=== PATIENT | male | born 1990 | race Caucasian/White ===

== ENCOUNTER 2020-08-13 14:17 | Outpatient (REF) | payer MEDICAID, SELFPAY | END 2020-08-13 14:18 | disposition home or self-care (01) | LOC: HO.LAB 14:17 | PROVIDERS: Visit Provider Internal Medicine | DX: Z20.828 Contact with and (suspected) exposure to other viral communicable diseases (principal) | CPT/HCPCS: C9803; U0003 ==

== ENCOUNTER 2020-08-29 06:39 | Outpatient (REF) | payer MEDICAID, SELFPAY | END 2020-08-29 06:40 | disposition home or self-care (01) | LOC: HO.LAB 06:39 | PROVIDERS: Visit Provider Internal Medicine | DX: Z20.828 Contact with and (suspected) exposure to other viral communicable diseases (principal) | CPT/HCPCS: C9803; U0003 ==

== ENCOUNTER 2020-11-04 16:10 | Emergency (ER) | payer OTHER, SELFPAY ==
--- NOTE | ~2020-11-04 | XR_ITS ---
EXAMINATION: XR SHOULDER, LEFT CLINICAL INFORMATION: Pain. COMPARISON: None TECHNIQUE: AP external rotation, Grashey, scapular Y, and axillary views of the left shoulder. FINDINGS: The bones and soft tissues are normal. No fracture. Glenohumeral and acromioclavicular alignment is anatomic with normal joint space. No abnormal soft tissue calcifications. XR/XR shoulder LT min 2V IMPRESSION: Unremarkable examination.
[2020-11-04 16:16] VITALS: BP 114/77; PULSE 77; RESP 18; TEMP 36.6; O2SAT 97; BMI 25.3
--- NOTE | 2020-11-04 17:21 | ED.EXTPRO ---
HPI - Extremity Problem General Chief complaint: Extremity Injury, Upper Stated complaint: shoulder inj work Time Seen by Provider: 11/04/20 17:15 Source: patient Mode of arrival: ambulatory Limitations: language barrier History of Present Illness HPI Narrative: 30-year-old male with no significant past medical history presents with left shoulder pain. 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 He does use a drill which he hold overhead. He is having a difficult time with shoulder flexion and extension and holding his arm out laterally. He does not report any chest pain, numbness, tingling, weakness, loss of sensation, bruising, or swelling. MD Complaint: extremity pain Onset (ago): day(s) (6) Pain Consistency: constant Location: left Severity scale (1-10): 9 Quality: burning, aching and constant Radiation: none Relieving factors: immobilization Exacerbating factors: range of motion, exertion and palpation Associated symptoms: denies other symptoms Related Data Previous Rx's Medication Instructions Recorded ibuprofen 600 mg PO TID PRN #30 tab 11/04/20 Allergies Allergy/AdvReac Type Severity Reaction Status Date / Time No Known Allergies Allergy Unverified 06/07/20 19:31 [No Known Allergies*] Review of Systems Review of Systems: Constitutional: No Fever, No Chills ENT/Mouth: No Ear Pain, No Hoarseness, No sore throat Eyes: No Eye Pain, No Swelling, No Redness, No Foreign Body Cardiovascular: No Chest Pain, No SOB Respiratory: No Cough, No Dyspnea Gastrointestinal: No Nausea, No Vomiting, No Diarrhea, No abdominal Pain Genitourinary: No Dysuria, No Hematuria Musculoskeletal: positive left shoulder pain, No Myalgias, No Joint Swelling Skin: No Skin lacerations, No rash Neuro: No Weakness, No Numbness, No Paresthesias, No Loss of Consciousness, No Dizziness, No Headache Psych: No Anxiety/Panic, No Depression Heme/Lymph: no easy bruising, no Lymphadenopathy Endocrine: No Polyuria, No Polydipsia Yes all other systems are reviewed and are negative [facility] Past Medical History Attestation statement: The following information was validated with the patient. Source: old records reviewed Social History Social History Alcohol intake: never Smoked in Last 30 Days: No Use of substances other than those prescribed or required for medical reasons: No Any prior treatment program specific to substance use: No Advance Directives: No Advance Directives Information Provided: Yes Physical Exam Vital Signs: Vital Signs: Last Vital Signs Temp 97.8 F 11/04/20 16:16 Pulse 77 11/04/20 16:16 Resp 18 11/04/20 16:16 BP 114/77 11/04/20 16:16 Pulse Ox 97 11/04/20 16:16 Body Mass Index 25.3 Appearance: Alert. Oriented X3. No acute distress. Eyes: Pupils equal, round and reactive to light. ENT: Pharynx normal. Neck: Normal inspection. Neck supple. CVS: Normal heart rate and rhythm. Pulses normal. Respiratory: No respiratory distress. Breath sounds normal. Abdomen: Soft and nontender. Skin: Skin warm and dry. Normal skin color. Normal skin turgor. Extremities: Full range of motion to all extremities, increased pain at the 80-100 degree lateral abduction of the left arm, tenderness to palpation to the left acromion process at rest. Strength 5/5 to all extremities. Neuro: No motor deficit. No sensory deficit. Cranial nerves 2-12 intact. No focal neural deficits. Course Course Course Narrative: 30-year-old male with no significant past medical history presents with left shoulder pain. Will order x-rays. Based on patient's physical exam, he has increased pain on range of motion on lateral abduction between 80 and 100?, pain worse with flexion and extension. Able to pronate and supinate, no elbow or wrist pain. Full range of motion to all digits. X-ray negative for acute fracture or dislocation. Highly suspicious for a rotator cuff injury. Stroud text message to Leon DACOSTA, office will reach out to patient. Patient verbalized understanding of and agrees to plan of care discharge home. sales team leader utilized for all correspondence. Google translate utilized for discharge instructions. MDM - Extremity (Nontraumatic) MDM Narrative Medical decision making narrative: Rotator cuff, ligament, labrum, muscular strain, fracture Medical Records Attestation: I reviewed the patient's medical records. Imaging Data Left shoulder x-ray: Attestation: I personally reviewed and interpreted this imaging study as follows: Radiologist's impression: EXAMINATION: XR SHOULDER, LEFT CLINICAL INFORMATION: Pain. COMPARISON: None TECHNIQUE: AP external rotation, Grashey, scapular Y, and axillary views of the left shoulder. FINDINGS: The bones and soft tissues are normal. No fracture. Glenohumeral and acromioclavicular alignment is anatomic with normal joint space. No abnormal soft tissue calcifications. XR/XR shoulder LT min 2V IMPRESSION: Unremarkable examination. Discharge Plan Discharge Clinical Impression: Rotator cuff injury Qualifiers: Encounter type: initial encounter Laterality: left Qualified Code(s): S46.002A - Unspecified injury of muscle(s) and tendon(s) of the rotator cuff of left shoulder, initial encounter Patient Disposition: Home, Self-Care Instructions: Rotator Cuff Injury (ED), Rotator Cuff Tendinitis (ED), Rotator Cuff Injury Exercises (DC) Additional Instructions: Te evaluaron para el dolor en el hombro ashley. Por favor, gladys un seguimiento con ortopedia. Te llamar?n con sally carlos alberto. Use Tylenol y Motrin seg?n sea necesario para el control del dolor. Use hielo para ayudar a disminuir la hinchaz?n. Usa el cabestrillo para mayor comodidad. Lauryn por elegir abdoul departamento de emergencias para la evaluaci?n. Por favor, gladys un seguimiento con el m?dico de atenci?n primaria seg?n sea necesario. Regrese al servicio de urgencias para cualquier s?ntoma nuevo, preocupante o que empeore. You were evaluated for left shoulder pain. Please follow-up with orthopedics. They will call you with an appointment. Use Tylenol and Motrin as needed for pain management. Use ice to help decrease swelling. Use the sling for comfort. Thank you for choosing this emergency department for evaluation. Please follow-up with primary care physician as needed. Return to the emergency department for any new, concerning, or worsening symptoms. Prescriptions: New ibuprofen 600 mg tablet 600 mg PO TID PRN (Reason: pain) Qty: 30 RF: 0 Referrals: Leon Johnson PA-C [Physician Tag Clerk] - 2 days (Left rotator cuff injury) Stand Alone Forms: Work/School Release Interventions: ED Discharge Assessment Last Done: 11/04/20 18:09 Discharge Date/Time: 11/04/20 18:15
== END 2020-11-04 18:15 | disposition home or self-care (01) ==
PROVIDERS: Emergency Provider Emergency Medicine; PCP Nurse Practitioner Family
DX: S46.002A Unspecified injury of muscle(s) and tendon(s) of the rotator cuff of left shoulder, initial encounter (principal); M25.512 Pain in left shoulder; X50.3XXA Overexertion from repetitive movements, initial encounter; X50.0XXA Overexertion from strenuous movement or load, initial encounter; Y93.9 Activity, unspecified; Y92.9 Unspecified place or not applicable; Y99.0 Civilian activity done for income or pay; Z79.899 Other long term (current) drug therapy
CPT/HCPCS: 73030; 99283; 99284

== ENCOUNTER → 2020-11-13 12:11 | Outpatient (BNVA) | payer OTHER, SELFPAY | PROVIDERS: Visit Provider Physician Assistant | DX: Z13.89 Encounter for screening for other disorder (principal) | CPT/HCPCS: 99202 ==

== ENCOUNTER 2020-11-22 12:11 | Outpatient (REF) | payer BC, OTHER, SELFPAY ==
[2020-11-22 13:18] LABS: Basophils Percent Auto 0.5 % (0-2); Eosinophils Absolute Auto 0.1 X10*3/uL (0.0-0.4); Eosinophils Percent Auto 1.9 % (0-4); Hematocrit 41.7 % (42-52); Imm Gran Abs Auto 0.01 X10*3/uL (0.00-0.03); Imm Gran Pct Auto 0.2 % (0.0-0.4); Lymphocytes Absolute Auto 2.6 X10*3/uL (1.2-4.9); MANUAL DIFF FLAG NO; Mean Corpuscular HGB Conc 33.6 g/dl (31.0-36.0); Mean Corpuscular Hemoglobin 29.7 pg (27.0-33.0); Mean Corpuscular Volume 88.3 fL (80-98); Mean Platelet Volume 9.1 fL (9.4-12.4); Monocytes Absolute Auto 0.3 X10*3/uL (0.1-1.2); Monocytes Percent Auto 5.5 % (2-11); Neutrophils Absolute Auto 2.8 X10*3/uL (2.0-8.3); Neutrophils Percent Auto 46.9 % (45-73); Platelet Count 297 X10*3/uL (160-400); Red Blood Count 4.72 X10*6/uL (4.60-5.80); Red Cell Distribution Width 13.3 % (11.0-16.0); White Blood Count 5.9 X10*3/uL (4.8-10.8)
[2020-11-22 13:47] LABS: Alanine Aminotransferase 12 U/L (0-40); Albumin Level 4.7 g/dL (3.5-5.0); Alkaline Phosphatase 62 U/L (39-117); Anion Gap 13 (12-20); Aspartate Amino Transferase 16 U/L (5-37); Blood Urea Nitrogen 13 mg/dL (9-16); C Reactive Protein 0.06 mg/dL (< or = 0.50); Calcium 9.6 mg/dL (8.4-10.2); Carbon Dioxide 29 mmol/L (22-29); Chloride 104 mmol/L (96-108); Cholesterol 158 mg/dL; Estimated Glomerular Filt Rate > 60; Glucose Fasting 97 mg/dL (60-99); HDL Cholesterol 36 mg/dL; LDL Cholesterol Calculated 100 mg/dl; Potassium 4.6 mmol/L (3.3-5.1); Sodium 141 mmol/L (135-145); Total Protein 7.7 g/dL (6.5-8.0); Triglycerides 110 mg/dL
[2020-11-22 13:52] LABS: Glucose Urine UA NEG (NEG); Leukocyte Esterase Urine NEG (NEG); Nitrite Urine NEG (NEG); PH 5.5 (5.0-8.0); Specific Gravity - Urine >= 1.030 (1.005-1.025); Urine Blood NEG (NEG); Urine Ketones NEG (NEG); Urine Protein NEG (NEG-TRACE)
[2020-11-22 13:55] LABS: Appearance Urine CLEAR; Color Urine YELLOW
[2020-11-22 14:10] LABS: TSH reflex Free T4 1.65 uIU/mL (0.32-4.0)
[2020-11-22 14:19] LABS: Erythrocyte Sedimentation Rate 7 MM/HR (0-15)
[2020-11-23 06:22] LABS: Lyme Abs Screen <0.90 index
[2020-11-23 22:41] LABS: ANA Titer 2 1:40 titer; Anti Nuclear Antibody Screen POSITIVE (NEGATIVE); Anti Nuclear Antibody Titer 1:40 titer
== END 2020-11-22 12:12 | disposition home or self-care (01) ==
LOC: HO.LAB 12:11
PROVIDERS: PCP Internal Medicine; Visit Provider Internal Medicine
DX: Z00.00 Encounter for general adult medical examination without abnormal findings (principal); M25.50 Pain in unspecified joint
CPT/HCPCS: 36415; 80053; 80061; 81003; 84443; 85025; 85652; 86038; 86039; 86140; 86618

== ENCOUNTER → 2020-11-30 08:55 | Outpatient (BNVA) | payer BC, OTHER, SELFPAY | PROVIDERS: PCP Internal Medicine; Visit Provider Physician Assistant | DX: M75.82 Other shoulder lesions, left shoulder (principal) | CPT/HCPCS: 20610; J1040 ==

== ENCOUNTER 2020-12-12 11:00 | Outpatient (RCR) | payer BC, OTHER, SELFPAY ==
--- NOTE | 2020-11-22 14:11 | MHC.PT.EP ---
[facility] [place] Office [place] Office [place] Office [address] Bertin Burkett [address] [phone] F: [phone] F: [phone] F: [phone] F: [phone] Physical Therapy Plan of Care Date of Evaluation: 11/22/20 Date of Surgery: N/A Diagnosis: Tendonitis of Left Rotator Cuff Assessment: Swetha is a 26-year-old male presenting to physical therapy with left shoulder pain and a diagnosis of rotator cuff tendonitis. He presents with deficits in L shoulder ROM, L shoulder strength,8-9/10 pain with movements, TTP over L AC joint and impaired posture. His pain is primarily located at his left AC joint and results of testing are indicative of an AC joint sprain. Swetha would benefit from skilled therapy to address the aforementioned impairments and allow him to perform ADLS, work on his car and bicycle, and return to work without pain and limitations in ROM and strength. Swetha is motivated to participate in therapy in order to return to his PLOF. Frequency and Duration: The patient will be seen 2 visits per week for 6 weeks Short Term Goals: 1.) Pt will report <2/10 pain at rest to allow him to sleep through the night within 3 weeks. 2.) Pt will demonstrate L shoulder flexion ROM WNL in order for him to be able to reach overhead when cleaning the house within 3 weeks. Orthopedic Rn Goals: 1.) Pt will be able to work on his car for one hour without experiencing shoulder pain within 6 weeks. 2.) Pt will demonstrate 5-/5 BL shoulder MMT with all movements in order to facilitate return to work within 6 weeks. Treatment Plan: Modalities to reduce pain, spasms and effusion. Manual therapy to restore motion and function. Therapeutic exercise to improve strength and flexibility. Neuromuscular re-education for posture and balance. Therapeutic activities to return to functional activities of daily living. Electronically signed by: Mindy Connor, PT, DPT Please sign and return to therapist. Thank you for your referral.
--- NOTE | 2021-01-02 11:30 | MHC.PT.DC ---
[facility] [place] Office [place] [facility] [place] Office [address] Bertin Burkett [address] [phone] F: [phone] F: [phone] F: [phone] F: [phone] Physical Therapy Discharge Report Diagnosis: Tendonitis of Left Rotator Cuff Date of Surgery: N/A Date of Evaluation: 11/22/20 Date of Discharge: 01/02/21 Treatments to Date: 7 Cancellations to Date: 0 No Shows to Date: 0 Discharge Status: Achieved Goals Improved Function Discharge Summary: Swetha completed 7 visits of PT and returned to PLOF. He has also returned to regular duty work. He has improved and is independent with HEPS. He has achieved all goals set for him. He is therefore being d/c from therapy. Electronically signed by: Mindy Connor, PT, DPT Please sign and return to therapist. Thank you for your referral.
== END 2021-01-02 11:30 | disposition other institution (70) ==
LOC: HO.PT 11:00
PROVIDERS: Visit Provider Physician Assistant
DX: M75.82 Other shoulder lesions, left shoulder (principal)
CPT/HCPCS: 97110; 97112; 97140; 97161

== ENCOUNTER → 2020-12-14 08:59 | Outpatient (BNVA) | payer BC, OTHER, SELFPAY | PROVIDERS: PCP Internal Medicine; Visit Provider Physician Assistant ==

== ENCOUNTER 2021-07-02 06:50 | Emergency (ER) | payer BC, SELFPAY ==
[2021-07-02 07:14] VITALS: BP 118/60; PULSE 95; RESP 18; TEMP 37.2; O2SAT 97; BMI 24.7
--- NOTE | 2021-07-02 07:23 | ED_ITS ---
HPI - URI/Sore Throat General Chief Complaint: Upper Respiratory Symptoms Stated Complaint: Covid symptoms Time Seen by Provider: 07/02/21 07:18 Source: patient Mode of arrival: ambulatory Limitations: no limitations History of Present Illness MD elicited complaint: fever, cough and sore throat Onset (ago): day(s) (3) Consistency: constant Severity: moderate Description of mucous: clear Able to tolerate fluids by mouth: Yes Exacerbating factors: nothing Relieving factors: nothing Context: sick contacts Associated symptoms: fever, chills, rhinorrhea, sore throat and cough Treatments prior to arrival: none Related Data Previous Rx's Medication Instructions Recorded ibuprofen 600 mg tablet 600 mg PO TID PRN #30 tab 11/04/20 Allergies Allergy/AdvReac Type Severity Reaction Status Date / Time No Known Allergies Allergy Verified 11/30/20 09:06 [No Known Allergies*] Review of Systems Review of Systems: Constitutional : positive Fever, positive Chills, positive fatigue, positive Malaise ENT/Mouth : positive sore throat, positive runny nose Eyes: No Discharge Cardiovascular : No Chest Pain, No SOB Respiratory : No Cough, No Sputum Gastrointestinal : No Nausea, No Vomiting, No Diarrhea Genitourinary : No Dysuria, No Urinary Frequency Musculoskeletal : positive Myalgia Skin : No rash Neuro : No Headache PMFSH Past Medical History Attestation statement: The following information was validated with the patient. 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 Oriented X3. No acute distress. Eyes: Pupils equal, round and reactive to light. ENT: Pharynx mild generalized erythema no exudates Neck: Normal inspection. Neck supple. CVS: Normal heart rate and rhythm. Pulses normal. Respiratory: No respiratory distress. Breath sounds normal. Abdomen: Soft and non-tender. Skin: Skin warm and dry. Normal skin color. Normal skin turgor. Extremities: No lower extremity edema. No calf ttp Neuro: Oriented X 3. No motor deficit. No sensory deficit. MDM - URI/Sore Throat MDM Narrative Medical decision making narrative: 31 yo male unvaccinated here with his sick spouse similar symptoms x 3 days - URI symptoms clear lungs not hypoxic. At this time COVID test ordered from triage. He can be managed at home. Dispo per results and findings. Lab Data Labs: Lab Results 07/02/21 07/02/21 Range/Units 07:22 08:03 COVID-19 (JUMA) Negative (Negative) COVID-19 Clin Com See Note S. pyogenes GrpA MEHRDAD Negative (Negative) Discharge Plan Discharge Clinical Impression: Viral infection Patient Disposition: Home, Self-Care Instructions: Viral Syndrome (ED) Additional Instructions: return to ED for any worsening symptoms or concerns I WOULD GET RETESTED IN 2 days quarantine yourself from others wear a mask, your symptoms are concerning for COVID even though your test was negative Prescriptions: No Action ibuprofen 600 mg tablet 600 mg PO TID PRN (Reason: pain) Qty: 30 RF: 0 Stand Alone Forms: Work/School Release
[2021-07-02 07:45] LABS: COVID-19 Test Negative (Negative)
[2021-07-02 08:19] LABS: Strep A Nucleic Acid Negative (Negative)
== END 2021-07-02 08:31 | disposition home or self-care (01) ==
PROVIDERS: Emergency Provider Emergency Medicine; PCP Internal Medicine
DX: B34.9 Viral infection, unspecified (principal); R50.9 Fever, unspecified; R05.9 Cough, unspecified; Z20.822 Contact with and (suspected) exposure to COVID-19; Z79.899 Other long term (current) drug therapy
CPT/HCPCS: 36415; 87635; 87651; 99283; 99284

== ENCOUNTER 2021-07-04 10:02 | Outpatient (REF) | payer BC, SELFPAY | END 2021-07-04 10:03 | disposition home or self-care (01) | LOC: HO.LAB 10:02 | PROVIDERS: Visit Provider Internal Medicine | DX: Z20.822 Contact with and (suspected) exposure to COVID-19 (principal) | CPT/HCPCS: C9803; U0003; U0005 ==

== ENCOUNTER 2022-07-27 02:47 | Emergency (ER) | payer BC, MEDICAID, SELFPAY ==
--- NOTE | ~2022-07-27 | CT_ITS ---
EXAMINATION: CT ABDOMEN AND PELVIS WITHOUT CONTRAST CLINICAL INFORMATION: Left flank pain. COMPARISON: None TECHNIQUE: Multidetector volumetric imaging was performed from the superior aspect of the liver through the pubic symphysis. Sagittal and coronal reformatted images were obtained on the technologist's workstation. This CT examination was performed using dose optimization techniques as appropriate, variously including the following: *Automated exposure control *Adjustment of mA and/or kV according to patient size (this includes techniques or standardized protocols for targeted exams where dose is matched to indication/reason for exam; i.e. extremities or head) *Use of iterative reconstruction technique DLP: 501 mGy-cm FINDINGS: LUNG BASES: The lung bases appear clear, with no evidence of inflammation or nodules. LIVER, GALLBLADDER, AND BILIARY TREE: The liver appears unremarkable in size, shape, and attenuation. No focal hepatic lesion or biliary ductal dilatation is appreciated. Unremarkable appearance of the gallbladder. PANCREAS: Unremarkable SPLEEN: Unremarkable ADRENAL GLANDS: Unremarkable KIDNEYS AND URETERS: 0.2 cm left UVJ stone with associated, very mild left hydronephrosis and hydroureter. Mild left perinephric stranding. 0.2 cm, nonobstructing left upper pole collecting system stone. Approximately 1 mm left lower pole collecting system stone. No evidence of stone or hydronephrosis on the right. The kidneys appear unremarkable in size, shape, and attenuation. BLADDER: Unremarkable GASTROINTESTINAL TRACT: The small and large bowel appear unremarkable. No diverticulosis. Normal-appearing distal ileum. No evidence of appendicitis. ABDOMINAL WALL: No significant hernia is appreciated. LYMPH NODES: No evidence of adenopathy by size criteria. VASCULAR: Unremarkable PELVIC VISCERA: Unremarkable OSSEOUS STRUCTURES: Unremarkable CT/CT abdomen pelvis wo IV con IMPRESSION: 0.2 cm left UVJ stone with associated, very mild left hydronephrosis and hydroureter.
[2022-07-27 02:54] VITALS: BP 144/77; PULSE 72; RESP 16; TEMP 36.2; O2SAT 99; BMI 25.4
[2022-07-27 03:07] LABS: Basophils Absolute Auto 0.1 X10*3/uL (0.0-0.2); Basophils Percent Auto 0.6 % (0-2); Eosinophils Absolute Auto 0.2 X10*3/uL (0.0-0.4); Eosinophils Percent Auto 1.8 % (0-4); Hematocrit 39.1 % (42.0-52.0); Hemoglobin 13.2 g/dl (14.0-18.0); Imm Gran Abs Auto 0.03 X10*3/uL (0.00-0.03); Imm Gran Pct Auto 0.2 % (0.0-0.4); Lymphocytes Absolute Auto 7.2 X10*3/uL (1.2-4.9); Lymphocytes Percent Auto 57.3 % (20-40); MANUAL DIFF FLAG SCAN; Mean Corpuscular HGB Conc 33.8 g/dl (31.0-36.0); Mean Corpuscular Hemoglobin 30.6 pg (27.0-33.0); Mean Corpuscular Volume 90.7 fL (80.0-98.0); Mean Platelet Volume 9.4 fL (9.4-12.4); Monocytes Absolute Auto 0.6 X10*3/uL (0.1-1.2); Monocytes Percent Auto 5.1 % (2-11); Neutrophils Absolute Auto 4.4 x10*3/uL (2.0-8.3); Platelet Count 273 X10*3/uL (160-400); Red Blood Count 4.31 X10*6/uL (4.60-5.80); Red Cell Distribution Width 13.8 % (11.0-16.0); SCAN SMEAR FLAG 1; White Blood Count 12.5 X10*3/uL (4.8-10.8)
[2022-07-27 03:30] LABS: Alanine Aminotransferase 11 U/L (0-40); Albumin Level 4.3 g/dL (3.5-5.0); Alkaline Phosphatase 64 U/L (39-117); Anion Gap 21 (12-20); Aspartate Amino Transferase 18 U/L (5-37); Bilirubin Total 0.3 mg/dL (0.0-1.0); Blood Urea Nitrogen 12 mg/dL (9-16); Calcium 9.2 mg/dL (8.4-10.2); Carbon Dioxide 21 mmol/L (22-29); Chloride 104 mmol/L (96-108); Creatinine Clr Calc Pharmacy 87.8; Estimated Glomerular Filt Rate > 60; Glucose Random 138 mg/dL (60-115); Potassium 3.6 mmol/L (3.3-5.1); Sodium 142 mmol/L (135-145); Total Protein 7.3 g/dL (6.5-8.0)
[2022-07-27 03:33] LABS: SLIDE REVIEW VERIFIED
[2022-07-27 03:50] LABS: Appearance Urine Turbid; Color Urine Yellow; Glucose Urine UA Negative (Negative); Leukocyte Esterase Urine Negative (Negative); Nitrite Urine Negative (Negative); PH 8.5 (5.0-9.0); Specific Gravity - Urine 1.015 (1.005-1.025); UMIC TRIGGER UACC YES; Urine Blood Moderate (2+) (Negative); Urine Ketones Negative (Negative); Urine Protein Trace mg/dL (Neg-Trace)
[2022-07-27 03:54] LABS: Bacteria Urine None Seen (None Seen); Hyaline Casts Urine 0-2 /LPF (0-2); RBC Urine >20 /HPF (0-2); Squamous Epithelial Cell Urine 0-2 /HPF (0-2); UACC Culture Trigger YES
[2022-07-27 06:53] VITALS: BP 116/72; PULSE 68; RESP 16; TEMP 36.7; O2SAT 98
--- NOTE | 2022-07-27 08:21 | ED_ITS ---
HPI - Abdominal Pain General Chief Complaint: Abdominal Pain Stated Complaint: Stomach pain Time Seen by Provider: 07/27/22 08:11 Source: patient Mode of arrival: ambulatory Limitations: no limitations History of Present Illness HPI narrative: This is a 32 years old male presented to the emergency department with chief complaint of abdominal pain since early this morning. Pain is localized in the left flank radiated to the left scrotum. He denies any fever chills he vomited x1 MD elicited complaint: flank pain Onset (ago): hour(s) (6) Pain Consistency: constant Location: L flank Severity: moderate Quality: dull Radiation: L flank Migration to: other (left groin) Exacerbating factors: nothing Relieving factors: nothing Related Data Previous Rx's Medication Instructions Recorded ibuprofen 600 mg tablet 600 mg PO TID PRN pain #30 tabs 11/04/20 ibuprofen 800 mg tablet 800 mg PO TID PRN pain #20 tabs 07/27/22 oxycodone 5 mg tablet 5 mg PO Q6H PRN pain #15 tabs 07/27/22 tamsulosin 0.4 mg capsule (Flomax) 0.4 mg PO BEDTIME #7 caps 07/27/22 Allergies Allergy/AdvReac Type Severity Reaction Status Date / Time No Known Allergies Allergy Verified 11/30/20 09:06 [No Known Allergies*] Review of Systems Constitutional: Reports no additional constitutional complaints Eyes: Reports no additional eye complaints Cardiovascular: Reports no additional cardiovascular complaints Gastrointestinal: Reports other (left flank pain) Musculoskeletal: Reports no additional musculoskeletal complaints Reports system reviewed and no additional complaints, except as documented PMF Past Medical History Medical History Arthralgia Surgical History No significant past surgical history Family History Family History Other Family history non-contributory Social History Social History Alcohol intake: never Advance Directives: No Advance Directives Information Provided: No Current occupational status: employed 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 Physical Exam ED Vital Signs: Vital Signs - 24 hr 07/27/22 02:54 07/27/22 06:53 07/27/22 09:00 Temperature 97.1 F 98.1 F 98.1 F Pulse Rate 72 68 61 Respiratory Rate 16 16 18 Blood Pressure 144/77 H 116/72 121/68 Pulse Oximetry 99 98 100 Oxygen Delivery Method Room Air Room Air Room Air 07/27/22 11:21 07/27/22 12:19 Temperature 98.4 F Pulse Rate 50 52 Respiratory Rate 18 18 Blood Pressure 96/52 L 106/53 L Pulse Oximetry 100 100 Oxygen Delivery Method Room Air Room Air BMI result Body Mass Index 25.4 Const General: cooperative Nutritional Appearance: average body habitus Orientation/consciousness: patient oriented x3 HENMT Head: Yes normal to inspection Ears: hearing grossly normal bilaterally General nose exam: Normal external nose present Face and sinus: Yes normal facial exam Mouth: Normal oral and palatal mucosa present Throat: Yes posterior oropharynx normal Neck Neck: Yes normal visual inspection, Yes full ROM and Yes no lymphadenopathy Thyroid: Thyroid normal Carotids: normal carotid upstroke Chest Chest palpation & inspection: normal inspection of the chest Resp Effort & Inspection: normal respiratory effort Auscultation: clear to auscultation bilaterally Cardio Rate: regular rate Rhythm: regular rhythm GI Inspection: Yes normal to inspection Palpation (GI): Soft to palpation Percussion: Yes Other (left flank) Skin General skin exam: no rashes or lesions noted, elasticity normal and turgor normal Neuro General: patient oriented x3 Course Reevaluation(s) Reevaluation #1: Re-examined 12:20 a pain is gone at this point will discharge the patient home he will follow-up with the urologist MDM - Abdominal Pain Lab Data Result diagrams: 07/27/22 03:01 07/27/22 03:01 Labs: Lab Results 07/27/22 07/27/22 07/27/22 Range/Units 03:01 03:01 03:44 WBC 12.5 H (4.8-10.8) X10*3/uL RBC 4.31 L (4.60-5.80) X10*6/uL Hgb 13.2 L (14.0-18.0) g/dl Hct 39.1 L (42.0-52.0) % MCV 90.7 (80.0-98.0) fL MCH 30.6 (27.0-33.0) pg MCHC 33.8 (31.0-36.0) g/dl RDW 13.8 (11.0-16.0) % Plt Count 273 (160-400) X10*3/uL MPV 9.4 (9.4-12.4) fL Immature Gran % (Auto) 0.2 (0.0-0.4) % Neut % (Auto) 35.0 L (45-73) % Lymph % (Auto) 57.3 H (20-40) % Patrick % (Auto) 5.1 (2-11) % Eos % (Auto) 1.8 (0-4) % Baso % (Auto) 0.6 (0-2) % Lymph # (Auto) 7.2 H (1.2-4.9) X10*3/uL Patrick # (Auto) 0.6 (0.1-1.2) X10*3/uL Eos # (Auto) 0.2 (0.0-0.4) X10*3/uL Baso # (Auto) 0.1 (0.0-0.2) X10*3/uL Abs Immat Gran (auto) 0.03 (0.00-0.03) X10*3/uL Absolute Neuts (auto) 4.4 (2.0-8.3) x10*3/uL Absolute Nucleated RBC 0.000 (0.0-0.012) X10*3/uL Nucleated RBC % (auto) 0.0 (0.0-0.2) /100WBC Smear Tech's Comments VERIFIED Sodium 142 (135-145) mmol/L Potassium 3.6 D (3.3-5.1) mmol/L Chloride 104 (96-108) mmol/L Carbon Dioxide 21 L (22-29) mmol/L Anion Gap 21 H (12-20) BUN 12 (9-16) mg/dL Creatinine 1.10 (0.5-1.4) mg/dL Estim Creat Clear Calc 87.8 Estimated GFR > 60 Random Glucose 138 H (60-115) mg/dL Calcium 9.2 (8.4-10.2) mg/dL Total Bilirubin 0.3 (0.0-1.0) mg/dL AST 18 (5-37) U/L ALT 11 (0-40) U/L Alkaline Phosphatase 64 (39-117) U/L Total Protein 7.3 (6.5-8.0) g/dL Albumin 4.3 (3.5-5.0) g/dL Urine Color Yellow Urine Appearance Turbid Urine pH 8.5 (5.0-9.0) Ur Specific [place] 1.015 (1.005-1.025) Urine Protein Trace (Neg-Trace) mg/dL Urine Glucose (UA) Negative (Negative) mg/dL Urine Ketones Negative (Negative) mg/dL Urine Blood Moderate (2+) H (Negative) Urine Nitrite Negative (Negative) Ur Leukocyte Esterase Negative (Negative) Urine RBC >20 H (0-2) /HPF Urine WBC 6-10 H (0-5) /HPF Ur Squamous Epith Cells 0-2 (0-2) /HPF Urine Bacteria None Seen (None Seen) Hyaline Casts 0-2 (0-2) /LPF Imaging Data CT scan - abdomen: Radiologist's impression: KIDNEYS AND URETERS: 0.2 cm left UVJ stone with associated, very mild left hydronephrosis and hydroureter. Mild left perinephric stranding. 0.2 cm, nonobstructing left upper pole collecting system stone. Approximately 1 mm left lower pole collecting system stone. No evidence of stone or hydronephrosis on the right. The kidneys appear unremarkable in size, shape, and attenuation. BLADDER: Unremarkable? GASTROINTESTINAL TRACT: The small and large bowel appear unremarkable. No diverticulosis. Normal-appearing distal ileum. No evidence of appendicitis.? ABDOMINAL WALL: No significant hernia is appreciated.? LYMPH NODES: No evidence of adenopathy by size criteria. VASCULAR: Unremarkable PELVIC VISCERA: Unremarkable OSSEOUS STRUCTURES: Unremarkable? CT/CT abdomen pelvis wo IV con IMPRESSION: ? 0.2 cm left UVJ stone with associated, very mild left hydronephrosis and hydroureter. Dictated By: Raj Peralta Discharge Plan Discharge Clinical Impression: Renal colic Patient Disposition: Home, Self-Care Instructions: Renal Colic (ED) Prescriptions: New tamsulosin [Flomax] 0.4 mg capsule 0.4 mg PO BEDTIME Qty: 7 0RF oxycodone 5 mg tablet 5 mg PO Q6H PRN (Reason: pain) Qty: 15 0RF Rx Instructions: partial filing upon pt request; Partial Fill upon patient request. ibuprofen 800 mg tablet 800 mg PO TID PRN (Reason: pain) Qty: 20 0RF No Action ibuprofen 600 mg tablet 600 mg PO TID PRN (Reason: pain) Qty: 30 0RF Referrals: Servando Dinero MD [Physician] - Stand Alone Forms: Work/School Release Interventions: ED Discharge Assessment Last Done: 07/27/22 13:28 Discharge Date/Time: 07/27/22 13:29
[2022-07-27 09:00] VITALS: BP 121/68; PULSE 61; RESP 18; TEMP 36.7; O2SAT 100
[2022-07-27] MEDS: 0.9 % Sodium Chloride 1,000 ML 999 ML IVCONT (09:18)
[2022-07-27] MEDS: Ketorolac Tromethamine 30 MG/ML VIAL IVPUSH (09:23)
[2022-07-27] MEDS: ondansetron HCL 4 MG/2 ML VIAL IVPUSH (09:26)
--- NOTE | 2022-07-27 11:03 | PC.NURSE ---
pt. presents with left lower abdominal pain radiating to his left testicle. 06/30. VS WNL. gave him ketorolac, zofran IV NS running. at bedside.
[2022-07-27 11:21] VITALS: BP 96/52; PULSE 50; RESP 18; TEMP 36.9; O2SAT 100
[2022-07-27 12:19] VITALS: BP 106/53; PULSE 52; RESP 18; O2SAT 100
== END 2022-07-27 13:29 | disposition home or self-care (01) ==
PROVIDERS: Emergency Provider Emergency Medicine
DX: N20.0 Calculus of kidney (principal); R10.32 Left lower quadrant pain; Z79.899 Other long term (current) drug therapy
CPT/HCPCS: 36415; 74176; 80053; 81001; 85025; 87086; 96374; 96375; 99284; J1885; J2405